=== PATIENT | male | born 1975 | race African-American/Black ===

== ENCOUNTER → 2019-10-27 12:50 | Outpatient (CLI) | payer OTHER, BC ==
[2015-12-08 14:01] VITALS: BMI 21.2
[~2019-10-27 12:50] MED LIST: KLONOPIN1 MG PO
== END | disposition home or self-care (01) ==
LOC: D.HCCECHO 12:50
PROVIDERS: ATTEND Internal Medicine Cardiovascular Disease
DX: R06.00 Dyspnea, unspecified (principal)